=== PATIENT | female | born 1985 | race Caucasian/White ===

== ENCOUNTER 2024-05-27 16:10 | Outpatient (CLI) | payer OTHER, SELFPAY | END 2024-05-27 16:11 | disposition home or self-care (01) | LOC: LKVREF 16:19 | PROVIDERS: PCP Family Medicine; Visit Provider Family Medicine | DX: E66.9 Obesity, unspecified (principal); F41.9 Anxiety disorder, unspecified; R53.83 Other fatigue | CPT/HCPCS: 80053; 80061; 84443 ==